=== PATIENT | male | born 1975 | race African-American/Black ===

== ENCOUNTER 2021-12-14 15:39 | Emergency (ER) | payer SELFPAY ==
[2021-12-14 15:43] VITALS: BP 124/72; PULSE 107; TEMP 97.3; BMI 25.7
[2021-12-14] MEDS ORDERED: SODIUM CHLORIDE 1,000 ML IV SCH (15:45)
== END 2021-12-14 16:00 | disposition left against medical advice (07) ==
LOC: JER 15:39
DX: R47.81 Slurred speech (principal); R53.1 Weakness
CPT/HCPCS: 82962; 99283-25